=== PATIENT | female | born 1975 ===

== ENCOUNTER 2021-04-24 10:45 | Inpatient (IN) | payer OTHER ==
[~2021-04-24] VITALS: Ht 165.1 cm; Wt 63.5 kg
[2021-04-24] MEDS ORDERED: SINGULAIR10 MG PO (14:07)
[2021-04-24] MEDS ORDERED: IRBESARTAN-HCT1 EACH PO (14:08)
[2021-04-26] MEDS ORDERED: SEROQUEL25 MG (09:08)
[2021-04-26] MEDS ORDERED: LORAZEPAM1 MG (09:08)
[2021-04-26] MEDS ORDERED: SERTRALINE HCL50 MG (09:09)
== END 2021-04-27 17:25 | disposition home or self-care (01) | DRG 743 ==
LOC: O/R 04-25 07:43 → OB/GYN 04-25 07:43 → SURH 04-25 10:45 → O/R 04-25 16:53 → OB/GYN 04-25 17:03
PROVIDERS: ADMIT Specialist; ATTEND Specialist
PROC: 0UT70ZZ Resection of Bilateral Fallopian Tubes, Open Approach (ICD-10-PCS; 2021-04-25)
PROC: 0UT20ZZ Resection of Bilateral Ovaries, Open Approach (ICD-10-PCS; 2021-04-25)
PROC: 0DNU0ZZ Release Omentum, Open Approach (ICD-10-PCS; 2021-04-25)
PROC: 0DNM0ZZ Release Descending Colon, Open Approach (ICD-10-PCS; 2021-04-25)
PROC: 0DN80ZZ Release Small Intestine, Open Approach (ICD-10-PCS; 2021-04-25)
PROC: 0UT90ZZ Resection of Uterus, Open Approach (ICD-10-PCS; principal; 2021-04-25 13:00)
DX: D25.1 Intramural leiomyoma of uterus (principal); Z20.822 Contact with and (suspected) exposure to COVID-19; N73.6 Female pelvic peritoneal adhesions (postinfective)

== ENCOUNTER 2023-12-03 07:33 | Outpatient (CLI) | payer OTHER ==
[~2023-12-03 07:33] MED LIST: IRBESARTAN-HCT1 EACH PO; LORAZEPAM1 MG; SEROQUEL25 MG; SERTRALINE HCL50 MG; SINGULAIR10 MG PO
== END 2023-12-03 07:43 | disposition home or self-care (01) ==
LOC: SONOGRAMA 07:33
DX: K80.80 Other cholelithiasis without obstruction (principal)

== ENCOUNTER → 2023-12-05 | Outpatient (CLI) | payer OTHER | END | disposition home or self-care (01) | LOC: MRI 07:36 | PROVIDERS: ATTEND Internal Medicine | DX: M50.90 Cervical disc disorder, unspecified, unspecified cervical region (principal) | CPT/HCPCS: 72141 ==

== ENCOUNTER → 2024-04-26 13:14 | Outpatient (CLI) | payer OTHER ==
[2024-04-26 13:48] LABS: PH,URINE 5.5 (5.0-8.0); URINE APPEARANCE Clear; URINE BILIRRUBIN Negative (NEGATIVE); URINE BLOOD Negative; URINE COLOR Yellow; URINE GLUCOSE Negative (NEGATIVE); URINE KETONE Negative (NEGATIVE); URINE LEUKOCYTE Negative; URINE NITRATE Negative; URINE PROTEIN Negative (NEGATIVE); URINE UROBILINOGEN 0.2 E.U./dl
[2024-04-26 13:51] LABS: URINE BACTERIA 56.2 uL (0.0-1933); URINE EPITHELIAL CELLS 7.5 uL (0.0-38.8); URINE RBC 8.1 uL (0.0-20.8); URINE WBC 4.7 uL (0.0-23.2)
[2024-04-26 13:55] LABS: HEMATOCRIT 41.7 % (36.0-45.00); HEMOGLOBIN 13.6 g/dL (12.0-15.00); MEAN CELL VOLUME 87.1 fL (80.00-100.00); MEAN CORPUSCULAR HEMOGLOBIN 28.4 pg (27.00-32.0); MEAN CORPUSCULAR HGB CONC 32.6 g/dl (32.0-36.0); PLATELET COUNT 297 K/uL (150-450); RED BLOOD COUNT 4.79 M/uL (4.00-6.00); RED CELL DISTRIBUTION WIDTH 14.1 % (11.5-14.5)
[2024-04-26 14:50] LABS: BILIRUBIN TOTAL 0.62 mg/dL (0.3-1.2); CALCIUM 9.6 mg/dL (8.5-10.1); CHOL HDL RATIO 2.3 (0-5.0); CREATININE SERUM 0.74 mg/dL (0.55-1.02); GFR 84.12; POTASSIUM 4.24 mEq/L (3.5-5.1); T4 TOTAL 12.26 UG/DL (4.8-13.9); TSH 0.955 uIU/mL (0.358-3.74)
== END | disposition home or self-care (01) ==
LOC: LAB 13:14
PROVIDERS: ATTEND Internal Medicine
DX: R68.89 Other general symptoms and signs (principal); I11.9 Hypertensive heart disease without heart failure; E78.00 Pure hypercholesterolemia, unspecified; R31.9 Hematuria, unspecified; E03.9 Hypothyroidism, unspecified; E11.9 Type 2 diabetes mellitus without complications